=== PATIENT | female | born 1975 | race Two or more races ===

== ENCOUNTER 2023-01-23 06:22 | Emergency (ER) | payer OTHER ==
[~2023-01-23] VITALS: Ht 162.6 cm; Wt 73.4 kg
[2023-01-23 07:47] VITALS: BP 121/76; PULSE 74; RESP 18; TEMP 97.4; O2SAT 100
[2023-01-23] MEDS ORDERED: DexAMETHasone SOD PHOS 10MG/1ML VIAL INJ IM ONE (08:45)
[2023-01-23] MEDS ORDERED: AMPICILLIN & SULBACTAM SODIUM 3 GM in SODIUM CHL 0.9% 100 ML IV SCH (08:45)
[2023-01-23] MEDS ORDERED: diphenhdrAMINE HCL 25 MG CAP PO ONE (08:45)
[2023-01-23] MEDS ORDERED: CLIN300C70 PO ×3 (08:47→09:19)
[2023-01-23] MEDS ORDERED: IBUP1TAB5 PO ×3 (08:47→09:19)
[2023-01-23] MEDS ORDERED: MUPI2OIN2 EX ×3 (08:47→09:19)
[2023-01-23] MEDS ORDERED: HYDR25CA PO ×3 (08:47→09:19)
== END 2023-01-23 09:05 | disposition home or self-care (01) ==
LOC: ER 06:22
DX: S50.862A Insect bite (nonvenomous) of left forearm, initial encounter (principal); L03.114 Cellulitis of left upper limb; Z79.1 Long term (current) use of non-steroidal anti-inflammatories (NSAID); Z79.899 Other long term (current) drug therapy; W57.XXXA Bitten or stung by nonvenomous insect and other nonvenomous arthropods, initial encounter; Y93.89 Activity, other specified; Y92.89 Other specified places as the place of occurrence of the external cause; Y99.8 Other external cause status
CPT/HCPCS: 96372; 99283; J1100